=== PATIENT | female | born 1995 | race African-American/Black ===

== ENCOUNTER 2018-05-01 21:11 | Emergency (ER) | payer OTHER ==
[~2018-05-01] VITALS: Ht 154.9 cm; Wt 50.0 kg
[2018-05-01 21:16] VITALS: BP 124/74
== END 2018-05-02 01:33 | disposition left against medical advice (07) ==
LOC: ER 21:26
DX: Z53.21 Procedure and treatment not carried out due to patient leaving prior to being seen by health care provider (principal)